=== PATIENT | male | born 1945 | race Caucasian/White ===

== ENCOUNTER 2018-05-07 19:18 | Outpatient (REF) | payer MEDICARE, SELFPAY ==
[2018-05-07 20:41] LABS: Albumin 3.6 g/dL (3.4-5.0); Anion Gap 8.8 mmol/L (3-11); BUN 25 mg/dL (7-18); CO2 28.2 mmol/L (21.0-32.0); CREATININE 1.15 mg/dL (0.70-1.30); Calcium 9.3 mg/dL (8.5-10.1); Chloride 101 mmol/L (98-107); Glucose 126 mg/dL (70-100); PHOSPHORUS 3.2 mg/dL (2.6-4.7); Potassium 4.1 mmol/L (3.5-5.1); Sodium 138 mmol/L (136-145)
== END 2018-05-07 19:19 ==
LOC: LBN 19:18
PROVIDERS: PCP Internal Medicine; Visit Provider Nurse Practitioner Adult Health
DX: I10 Essential (primary) hypertension (principal); I48.2 Chronic atrial fibrillation; N04.2 Nephrotic syndrome with diffuse membranous glomerulonephritis
CPT/HCPCS: 80069

== ENCOUNTER 2018-05-18 08:35 | Outpatient (REF) | payer MEDICARE, SELFPAY ==
[2018-05-18 19:36] LABS: COMMENT (LAB VIEW ONLY) 148.93 mg/dL; Prot/Crea Ur Ratio 0.96
== END 2018-05-18 08:36 ==
LOC: NCHCN 08:35
PROVIDERS: PCP Internal Medicine; Visit Provider Internal Medicine
DX: R80.9 Proteinuria, unspecified (principal)
CPT/HCPCS: 82565; 84156

== ENCOUNTER 2018-07-30 12:30 | Outpatient (REF) | payer MEDICARE, SELFPAY ==
[2018-07-30 19:07] LABS: Albumin 3.8 g/dL (3.4-5.0); Anion Gap 9.6 mmol/L (3-11); BUN 25 mg/dL (7-18); CO2 27.4 mmol/L (21.0-32.0); Calcium 9.4 mg/dL (8.5-10.1); Chloride 101 mmol/L (98-107); Estimated GFR 59.51 (mL/min/1.73m2); Glucose 123 mg/dL (70-100); PHOSPHORUS 3.3 mg/dL (2.6-4.7); Potassium 3.8 mmol/L (3.5-5.1); Sodium 138 mmol/L (136-145)
== END 2018-07-30 12:50 ==
LOC: LBN 12:30
PROVIDERS: PCP Internal Medicine; Visit Provider Nurse Practitioner Adult Health
DX: N04.2 Nephrotic syndrome with diffuse membranous glomerulonephritis (principal); I10 Essential (primary) hypertension
CPT/HCPCS: 80069

== ENCOUNTER 2018-07-31 09:12 | Outpatient (REF) | payer MEDICARE, SELFPAY ==
[2018-07-31 20:21] LABS: COMMENT (LAB VIEW ONLY) 72.63 mg/dL; Prot/Crea Ur Ratio 0.16
== END 2018-07-31 09:32 ==
LOC: LBN 09:12
PROVIDERS: PCP Internal Medicine; Visit Provider Nurse Practitioner Adult Health
DX: N04.2 Nephrotic syndrome with diffuse membranous glomerulonephritis (principal); I10 Essential (primary) hypertension; N18.9 Chronic kidney disease, unspecified
CPT/HCPCS: 82565; 84156

== ENCOUNTER 2019-04-22 14:06 | Outpatient (REF) | payer MEDICARE, SELFPAY ==
[2019-04-22 19:18] LABS: PROTEIN 76.7 mg/dL
[2019-04-22 19:36] LABS: Prot/Crea Ur Ratio 0.51
== END 2019-04-22 14:26 ==
LOC: NCHCN 14:06
PROVIDERS: PCP Internal Medicine; Visit Provider Internal Medicine
DX: R80.9 Proteinuria, unspecified (principal)
CPT/HCPCS: 82565; 84156

== ENCOUNTER 2019-06-28 15:19 | Outpatient (REF) | payer MEDICARE, SELFPAY ==
[2019-06-28 19:25] LABS: ALT 22 U/L (16-63); AST 16 U/L (15-37); Albumin 3.5 g/dL (3.4-5.0); Alkaline Phosphatase 161 U/L (46-116); Anion Gap 9.7 mmol/L (3-11); BUN 22 mg/dL (7-18); Bilirubin, Total 0.5 mg/dL (0.2-1.0); CO2 30.3 mmol/L (21.0-32.0); CREATININE 1.15 mg/dL (0.70-1.30); Calcium 9.4 mg/dL (8.5-10.1); Chloride 102 mmol/L (98-107); Glucose 162 mg/dL (70-100); Potassium 3.7 mmol/L (3.5-5.1); Sodium 142 mmol/L (136-145); Total Protein 6.6 g/dL (6.4-8.2)
[2019-06-28 19:47] LABS: Iron 67 ug/dL (50-175); Total Iron Binding Capacity 294 ug/dL (250-450); Transferrin Sat 23 % (20-55)
== END 2019-06-28 15:39 ==
LOC: NCHCN 15:19
PROVIDERS: PCP Internal Medicine; Visit Provider Internal Medicine
DX: G25.81 Restless legs syndrome (principal); N04.2 Nephrotic syndrome with diffuse membranous glomerulonephritis
CPT/HCPCS: 80053; 83540; 83550

== ENCOUNTER 2019-07-08 09:57 | Outpatient (REF) | payer MEDICARE, SELFPAY ==
[2019-07-08 19:35] LABS: Hemoglobin A1C 6.2 % (4.5-6.2)
== END 2019-07-08 10:17 ==
LOC: NCHCN 09:57
PROVIDERS: PCP Internal Medicine; Visit Provider Internal Medicine
DX: R73.9 Hyperglycemia, unspecified (principal)
CPT/HCPCS: 83036

== ENCOUNTER 2019-10-23 11:41 | Outpatient (REF) | payer MEDICARE, SELFPAY ==
[2019-10-23 20:53] LABS: PROTEIN 46.8 mg/dL
[2019-10-23 20:54] LABS: COMMENT (LAB VIEW ONLY) 131.54 mg/dL; Prot/Crea Ur Ratio 0.35
== END 2019-10-23 12:01 ==
LOC: NCHCN 11:41
PROVIDERS: PCP Internal Medicine; Visit Provider Internal Medicine
DX: N18.2 Chronic kidney disease, stage 2 (mild) (principal); R73.09 Other abnormal glucose; R80.9 Proteinuria, unspecified; F43.20 Adjustment disorder, unspecified
CPT/HCPCS: 82565; 84156

== ENCOUNTER 2020-04-23 14:26 | Outpatient (REF) | payer MEDICARE, SELFPAY ==
[2020-04-23 20:23] LABS: COMMENT (LAB VIEW ONLY) 105.14 mg/dL; Microalb ug/mg Crea 48.3 ug/mg Cr; PROTEIN 23.2 mg/dL (0.0-11.9)
== END 2020-04-23 14:46 ==
LOC: NCHCN 14:26
PROVIDERS: PCP Internal Medicine; Visit Provider Internal Medicine
DX: R80.9 Proteinuria, unspecified (principal)
CPT/HCPCS: 82043; 82570; 84156

== ENCOUNTER 2020-06-04 17:26 | Outpatient (REF) | payer MEDICARE, SELFPAY ==
[2020-06-04 20:21] LABS: ALT 32 U/L (16-63); AST 20 U/L (15-37); Albumin 3.9 g/dL (3.4-5.0); Alkaline Phosphatase 117 U/L (46-116); Anion Gap 6.3 mmol/L (3-11); BUN 18 mg/dL (7-18); Bilirubin, Total 0.7 mg/dL (0.2-1.0); CO2 31.7 mmol/L (21.0-32.0); CREATININE 1.18 mg/dL (0.70-1.30); Calcium 9.7 mg/dL (8.5-10.1); Chloride 102 mmol/L (98-107); Glucose 120 mg/dL (74-106); NT-proBNP 1781 pg/mL (<300); Potassium 3.4 mmol/L (3.5-5.1); Sodium 140 mmol/L (136-145); Total Protein 6.6 g/dL (6.4-8.2)
[2020-06-04 20:23] LABS: Troponin I < 0.05 ng/mL (<0.06)
== END 2020-06-04 17:46 ==
LOC: NCHCN 17:26
PROVIDERS: PCP Internal Medicine; Visit Provider Physician Assistant
DX: R60.0 Localized edema (principal); I10 Essential (primary) hypertension; I48.0 Paroxysmal atrial fibrillation; R05 Cough
CPT/HCPCS: 80053; 83880; 84484

== ENCOUNTER 2020-10-07 16:02 | Outpatient (REF) | payer MEDICARE, SELFPAY ==
[2020-10-07 20:46] LABS: PROTEIN 64.7 mg/dL
[2020-10-07 20:48] LABS: COMMENT (LAB VIEW ONLY) 163.83 mg/dL; Prot/Crea Ur Ratio 0.39
== END 2020-10-07 16:22 ==
LOC: NCHCN 16:02
PROVIDERS: PCP Internal Medicine; Visit Provider Internal Medicine
DX: N18.2 Chronic kidney disease, stage 2 (mild) (principal)
CPT/HCPCS: 82565; 84156

== ENCOUNTER 2020-11-11 18:41 | Outpatient (REF) | payer MEDICARE, SELFPAY ==
[2020-11-13 15:30] LABS: COVID-19 RT-PCR UVMMC Result Negative (Negative)
== END 2020-11-11 18:42 | disposition home or self-care (01) ==
LOC: NCHCN 18:41
PROVIDERS: PCP Internal Medicine; Visit Provider Internal Medicine
DX: J06.9 Acute upper respiratory infection, unspecified (principal)
CPT/HCPCS: U0003; U0005

== ENCOUNTER 2020-12-28 15:42 | Outpatient (REF) | payer MEDICARE, SELFPAY ==
[2020-12-28 15:57] LABS: HCT 43.8 % (40.0-50.0); HGB 14.7 g/dL (13.5-17.5); MCH 31.5 pg (27.0-33.0); MCHC 33.6 % (32.0-36.0); MCV 93.8 fL (80-95); MPV 11.9 fL (8.0-11.0); Platelet Count 147 10^3/uL (130-400); RBC 4.67 10^6/uL (4.36-5.78); RDW 13.3 % (11.8-14.1); RDW-SD 45.4 fL; WBC 6.24 10^3/uL (4.4-10.8)
[2020-12-28 16:07] LABS: Anion Gap 8.5 mmol/L (3-11); BUN 24 mg/dL (7-18); CO2 28.5 mmol/L (21.0-32.0); CREATININE 1.1 mg/dL (0.70-1.30); Calcium 9.7 mg/dL (8.5-10.1); Chloride 103 mmol/L (98-107); Glucose 123 mg/dL (74-106); Potassium 4.4 mmol/L (3.5-5.1); Sodium 140 mmol/L (136-145)
== END 2020-12-28 15:43 | disposition home or self-care (01) ==
LOC: NCHCN 15:42
PROVIDERS: PCP Internal Medicine; Visit Provider Internal Medicine
DX: I10 Essential (primary) hypertension (principal); I48.0 Paroxysmal atrial fibrillation
CPT/HCPCS: 80048; 85027

== ENCOUNTER 2021-06-08 18:58 | Outpatient (REF) | payer MEDICARE, SELFPAY ==
[2021-06-10 10:24] LABS: Lyme Ab w Rflx to Lyme Confirm Negative (Negative)
[2021-06-11 18:02] LABS: Anaplasma phagocytophilum Negative (Negative); B. miyamotoi PCR Negative (Negative); Babesia divergens/MO-1 Negative (Negative); Babesia duncani Negative (Negative); Babesia microti Negative (Negative); Ehrlichia chaffeensis Negative (Negative); Ehrlichia ewingii/canis Negative (Negative); Ehrlichia muris eauclairensis Negative (Negative)
== END 2021-06-08 18:59 | disposition home or self-care (01) ==
LOC: NCHCN 18:58
PROVIDERS: PCP Internal Medicine; Visit Provider Nurse Practitioner Family
DX: R21 Rash and other nonspecific skin eruption (principal)
CPT/HCPCS: 87798; 86618

== ENCOUNTER 2021-07-29 12:45 | Outpatient (REF) | payer MEDICARE, SELFPAY ==
[2021-07-29 19:51] LABS: ALT 40 U/L (16-63); Calculated LDL 51 mg/dL (<100); Cholesterol 105 mg/dL (<200); HDL Cholesterol 29 mg/dL (40-60); Triglyceride 126 mg/dL (<150)
[2021-07-29 20:46] LABS: COMMENT (LAB VIEW ONLY) 183.35 mg/dL
[2021-07-29 20:52] LABS: Microalb ug/mg Crea 189.4 ug/mg Cr
== END 2021-07-29 12:46 | disposition home or self-care (01) ==
LOC: NCHCN 12:45
PROVIDERS: PCP Internal Medicine; Visit Provider Internal Medicine
DX: E78.5 Hyperlipidemia, unspecified (principal); I10 Essential (primary) hypertension
CPT/HCPCS: 80061; 82043; 82570; 84460

== ENCOUNTER 2021-08-04 02:45 | Outpatient (CLI) | payer MEDICARE, SELFPAY ==
[2021-08-04 11:15] LABS: Source Nasal/Nares
[2021-08-04 17:21] LABS: COVID-19 PCR Negative (Negative)
== END 2021-08-04 02:46 | disposition home or self-care (01) ==
LOC: LBO 02:45
PROVIDERS: PCP Internal Medicine; Visit Provider Ophthalmology
DX: Z20.822 Contact with and (suspected) exposure to COVID-19 (principal); Z01.818 Encounter for other preprocedural examination
CPT/HCPCS: 87635

== ENCOUNTER 2021-08-06 07:16 | Day surgery (SDC) | payer MEDICARE, SELFPAY ==
--- NOTE | 2021-08-06 07:36 | W.ANESPRE ---
General Info Date of Service Date Performed: 08/06/21 Height: 6 ft Weight: 99.79 kg Body Mass Index (BMI): 29.8 Surgical Procedure: Operation Date: 08/06/21 09:40 Proposed Procedures Side Surgeon p Cataract Extraction with IOL Implant Right Prasad Bello MD Meds Allergies and Home Medications Allergies Allergy/AdvReac Type Severity Reaction Status Date / Time aspirin AdvReac Intermediate upset Unverified 08/06/21 07:52 stomach Home Medication Medication Instructions Recorded acetaminophen 650 mg PO Q6H PRN 08/04/21 atorvastatin 40 mg PO DAILY 08/04/21 finasteride 5 mg PO DAILY 08/04/21 losartan 25 mg PO HS 08/04/21 metoprolol tartrate 25 mg PO BID 08/04/21 multivitamin 1 tab PO DAILY 08/04/21 pantoprazole 40 mg PO DAILY 08/04/21 pramipexole 1.5 mg PO HS 08/04/21 rivaroxaban [Xarelto] 15 mg PO DAILY 08/04/21 spironolactone 25 mg PO DAILY 08/04/21 triamcinolone acetonide 1 applic TOPICAL BID 08/04/21 Current Visit Medications: Current Medications Generic Name Dose Route Start Last Admin Trade Name Freq PRN Reason Stop Dose Admin Acetaminophen 1,000 mg 08/06/21 06:00 Acetaminophen 500 Mg Tab PO Q4H PRN PRN Miscellaneous Medication 0 ml 08/06/21 06:00 Prednisolone 1%, Moxifloxacin 0.5%, Nepafenac 0.1% 5ml Btl OD DIRECTED [facility] Miscellaneous Medication 0 ml 08/06/21 06:00 Tropicam./Phenyleph. (1/2.5%) 5 Ml Btl OD DIRECTED [facility] Tetracaine HCl 0 ml 08/06/21 06:00 Tetracaine 0.5% 4 Ml Btl OD DIRECTED [facility] PFSH Active Problems Active Problems: Problem Status Onset Code Cortical cataract of right eye H26.9 Nuclear sclerotic cataract of right eye H25.11 Medical History Medical History (Updated 08/06/21 @ 07:52 by Mallika Clarke) Actinic keratosis Asbestos exposure Bilateral cataracts Bladder outlet obstruction Chronic cough CKD (chronic kidney disease), stage II COPD, mild Diabetes mellitus Eczema Esophageal dysmotilities Ex-smoker for more than 1 year GERD (gastroesophageal reflux disease) History of broken leg left History of hip fracture left HLD (hyperlipidemia) HTN (hypertension) Left hip pain Lumbago with sciatica, left side Membranous nephritis Osteoarthritis Osteoarthritis, hip, bilateral Paroxysmal A-fib Pt. stated he has not had any issues with it and f/u with his PCP Dr. Silva Pedal edema Proteinuria Pyloric channel ulcer RLS (restless legs syndrome) Rotator cuff syndrome Synovial cyst Zoster Surgical History Surgical History (Updated 08/06/21 @ 07:52 by Mallika Clarke) History of arthroplasty of left knee History of surgery on wrist left History of total right hip arthroplasty Tobacco Smoking/Tobacco Use Status: Former Tobacco Use Alcohol Alcohol Intake: never Substance Use Substance use: Never Substance use type: does not use Vital Signs and Lab Results Lab Results Blood Type / Crossmatch: No Data to Display Complete Blood Count: No Data to Display Complete Metabolic Panel: No Data to Display Liver Function Panel: Alanine Aminotransferase (ALT/SGPT) 40 U/L (16-63) 07/29/21 12:00 07/29/21 Coagulation Panel: No Data to Display Cardiac Panel: No Data to Display Arterial Blood Gas: No Data to Display Venous Blood Gas: No Data to Display Pancreas Panel: No Data to Display Thyroid Panel: No Data to Display Infectious Disease: Coronavirus (COVID-19)(PCR) Negative (Negative) 08/04/21 10:38 08/04/21 Coronavirus 2019 Source Nasal/Nares 08/04/21 10:38 08/04/21 Blood Cultures: No Data to Display Toxicology Panel: No Data to Display Anesthesia Assessment and Plan Anesthesia History Personal History: No History of Anesthesia Complications Family History: No Family History of Anesthesia Complications Exercise Tolerance Exercise Tolerance: Metabolic Equivalents>4 Pertinent Negatives Pertinent Negatives: No Symptoms of GERD, No Major Cardiovascular Symptoms or Complaints and No History of CVA/TIA Cardiac & Pulmonary Exam Cardiac Exam: Normal S1/S2 Heart Sounds Pulmonary Exam: Clear Bilateral Breath Sounds Implantable Cardiac Device Does patient have a Pacemaker or an ICD?: No Airway Exam Known Difficult Airway: No Mallampati Class: 3 Mouth Opening: Normal (> 3cm) Thyromental Distance: Greater than 3 cm Neck Range of Motion: Full ROM Neck Circumference: Normal Teeth Condition: Normal Dentition and Removable Dentures/Plates Upper ASA Classification ASA Score: ASA 3 Emergency Case?: No NPO Status NPO Status: NPO Clears >2 hours, Solids >8 hours Anesthesia Plan Resuscitation Status: Full Code Anesthesia Technique: MAC Anesthesia Airway Planned: Natural Airway Monitors Used: Standard Monitors
[2021-08-06 08:03] VITALS: BP 123/78; PULSE 69; RESP 16; TEMP 36.3; O2SAT 96
[2021-08-06] MEDS: Tropicam./Phenyleph. (1/2.5%) 5 ML BTL OD ×3 (08:10→08:20)
[2021-08-06 08:15] VITALS: BMI 29.8
[2021-08-06] MEDS: Tetracaine 0.5% 4 ML BTL OD (09:12)
[2021-08-06] MEDS: Balanced Salt Soln.-PLUS 500 ML BAG (09:13)
[2021-08-06] MEDS: Duovisc Viscoelastic System EACH 1 EACH (09:14)
[2021-08-06] MEDS: Lidocaine 1% Pres-Free 5 ML VIAL (09:15)
[2021-08-06] MEDS: Lidocaine 2% Jelly 6 ML SYR (09:15)
[2021-08-06] MEDS: Povidone-Iodine Ophth 30 ML BTL (09:17)
[2021-08-06 09:30] VITALS: BP 136/72; PULSE 70; RESP 16; TEMP 36.6; O2SAT 96
--- NOTE | 2021-08-06 09:30 | ROE_ITS ---
Date of service: 08/06/21 Time of Service: 09:30 Operative Note Operative Note DATE OF PROCEDURE: 08/06/21 PRE-OP DIAGNOSIS: Nuclear/cortical cataract, right eye POST-OP DIAGNOSIS: same PROCEDURE: Cataract extraction using phacoemulsification with intraocular lens implant, right eye SURGEON: Prasad Bello ANESTHESIA TYPE: Local By Surgeon and MAC Refer to Anesthesia Record ESTIMATED BLOOD LOSS: 0 PATHOLOGY: none sent COMPLICATIONS: None Patient was transported to: same day Patient's condition: stable Implants: Jose G & Jose G/ISACC Tecnis [id number] Indications: Progressive visual loss due to cataract, right eye Procedure Description: CATARACT SURGERY OPERATIVE REPORT PREOPERATIVE DIAGNOSIS: 1. Nuclear/cortical cataract, right eye POSTOPERATIVE DIAGNOSIS: Same OPERATION: 1. Cataract extraction using phacoemulsification with posterior chamber intraocular lens implant, right eye. IOL: IOL [employer]/Model: Jose G & Jose G / ISACC Tecnis [id number] IOL Power: + 21.0 diopters IOL Serial Number: [id number] Optic Diameter: 6.0mm Haptic/Overall Diameter: 13.0mm PHACO INFO: Win Blackberryurion Vision System with OZil and Active Fluidics Cumulative Dispersed Energy (CDE): 9.56 seconds SURGEON: Prasad Bello MD, IGOR ANESTHESIA: Monitored Anesthesia Care (MAC), with local sub-tenon's anesthetic infiltration COMPLICATIONS: None SPECIMENS: None INDICATIONS FOR PROCEDURE: The patient is a 75-year-old gentleman with history of diminished visual acuity in his right eye secondary to the development of nuclear and cortical cataract. He is significantly symptomatic that he desires cataract surgery and attempt to improve and maximize his vision. The option of cataract surgery was offered to the patient and he wished to proceed. PROCEDURE: The correct surgical eye was identified and marked as the right eye and the pupil was dilated in the preoperative area using mydriatics and cycloplegics. The dilated pupil size was 8.0 mm. He elected to proceed without oral sedation. The patient was brought to the operating room where cardiopulmonary monitoring was instituted and surgical time-out was performed, confirming the correct operative eye and IOL power. Topical anesthesia was administered and ophthalmic povidone-iodine 5% was instilled into the conjunctival fornices. Lidocaine gel was applied to the cornea and the garo-ocular area was prepped with Betadine 10% solution and draped in the usual sterile fashion for intraocular surgery, including an aperture drape. A Tegaderm transparent film dressing was cut in half and used to cover the lashes and lid margins. Care was taken to sequester the lashes and lid margins under the Tegaderm dressing. A lid speculum was placed between the lids of the operative eye and the Berna-Washington operating microscope was maneuvered into position. Ayesha scissors were then used to make a conjunctival buttonhole approximately 6mm posterior to the limbus in the inferonasal quadrant. Blunt dissection was carried out to expose bare sclera, and a blunt-tipped sub-tenon?s anesthesia cannula was introduced and passed posteriorly along the globe where non- preserved plain lidocaine was injected into posterior sub-Tenon?s space. A sideport knife was used to make a paracentesis port inferotemporally. Intraocular phenylephrine/lidocaine was injected into the anterior chamber. The anterior chamber was filled with viscoelastic. A 2.4mm keratome knife was used to create a half-thickness groove at the limbus and then to construct a three- plane near-clear corneal tunnel extending 2.0mm into clear cornea superiortemporally. A flap was raised on the anterior capsule and capsulorhexis forceps were used to complete a continuous curvilinear capsulorhexis of 5.5 mm. Balanced salt solution was then used to perform cortical cleaving hydrodissection and nuclear hydrodelineation until the lens could be freely rotated within the capsular bag. The lens nucleus was then disassembled and removed within the capsular bag and iris plane using phacoemulsification. Residual cortical material was removed using the I/A handpiece. The posterior capsule was carefully polished to remove as much residual lens epithelial cells as safely possible. The capsular bag was then inflated and the anterior chamber deepened with viscoelastic. The lens implant described above was inserted into the capsular bag using the ISACC [place] Injector. A Kuglen hook was used to d ial the IOL into position. Residual viscoelastic was then removed first from posterior to the IOL, then from the anterior chamber using the I/A handpiece. The lens implant was noted to center nicely within the capsular bag. The incisions were stromally hydrated, and the anterior chamber was reformed using BSS. Then 0.5cc of moxifloxacin 1.0mg/ml were injected into the capsular bag and anterior chamber. The incisions were checked with a Weck spear and found to be secure. Several drops of ophthalmic povidone-iodine 5% were then applied to the eye followed by two drops of Imprimis combination prednisolone/moxifloxacin/nepafenac solution. The drapes were removed and a clear plastic protective eye shield was placed over the eye. The patient was then returned to Same Day Surgery in stable condition.
--- NOTE | 2021-08-06 09:57 | W.ANESPOSTOP ---
Postoperative Evaluation Date, Time and Location Date Performed: 08/06/21 Time Performed: 09:50 Patient Location: Day Surgery Unit Vital Signs Most Recent Imported Vital Signs: Most Recent Vital Signs Temp Pulse Resp BP Pulse Ox 36.6 C 70 16 136/72 96 08/06/21 09:30 08/06/21 09:30 08/06/21 09:30 08/06/21 09:30 08/06/21 09:30 Pain Score Most Recent Pain Score: Most Recent Pain Score Pain Level 0 08/06/21 09:30 Assessment Mental Status: Awake (Alert & Oriented to Patient Baseline) Airway and Respiratory Function: Patent airway with normal (patient baseline) respiratory exam Cardiovascular Function: Hemodynamically Stable Hydration Status: Adequately Hydrated Nausea & Vomiting: No Nausea or Vomiting Pain: Pt. Denies Any Pain Peripheral Nerve Block: Other (Local by Dr. Bello)
== END 2021-08-06 09:55 | disposition home or self-care (01) ==
LOC: SUR 07:16
PROVIDERS: PCP Internal Medicine; Visit Provider Ophthalmology
PROC: (CPT 66984; principal; 2021-08-06 09:30)
DX: H25.11 Age-related nuclear cataract, right eye (principal); E11.22 Type 2 diabetes mellitus with diabetic chronic kidney disease; N18.2 Chronic kidney disease, stage 2 (mild); I48.0 Paroxysmal atrial fibrillation
CPT/HCPCS: 66984; V2632

== ENCOUNTER 2021-08-11 02:50 | Outpatient (CLI) | payer MEDICARE, SELFPAY ==
[2021-08-11 10:53] LABS: Source Nasal/Nares
[2021-08-11 14:12] LABS: COVID-19 PCR Negative (Negative)
== END 2021-08-11 02:51 | disposition home or self-care (01) ==
LOC: LBO 02:51
PROVIDERS: PCP Internal Medicine; Visit Provider Ophthalmology
DX: Z20.822 Contact with and (suspected) exposure to COVID-19 (principal); Z01.818 Encounter for other preprocedural examination
CPT/HCPCS: 87635

== ENCOUNTER 2021-08-13 07:18 | Day surgery (SDC) | payer MEDICARE, SELFPAY ==
--- NOTE | 2021-08-12 13:22 | ANES.PREOP_ITS ---
General Info Date of Service Date Performed: 08/13/21 Height: 6 ft Weight: 100.7 kg Body Mass Index (BMI): 30.1 Surgical Procedure: Operation Date: 08/13/21 09:40 Proposed Procedures Side Surgeon p Cataract Extraction with IOL Implant Left Prasad Bello MD Meds Allergies and Home Medications Allergies Allergy/AdvReac Type Severity Reaction Status Date / Time aspirin AdvReac Intermediate upset Unverified 08/13/21 07:41 stomach Home Medication Medication Instructions Recorded acetaminophen 650 mg PO Q6H PRN 08/04/21 atorvastatin 40 mg PO DAILY 08/04/21 finasteride 5 mg PO DAILY 08/04/21 losartan 25 mg PO HS 08/04/21 metoprolol tartrate 25 mg PO BID 08/04/21 multivitamin 1 tab PO DAILY 08/04/21 pantoprazole 40 mg PO DAILY 08/04/21 pramipexole 1.5 mg PO HS 08/04/21 rivaroxaban [Xarelto] 15 mg PO DAILY 08/04/21 spironolactone 25 mg PO DAILY 08/04/21 triamcinolone acetonide 1 applic TOPICAL BID 08/04/21 Current Visit Medications: Current Medications Generic Name Dose Route Start Last Admin Trade Name Freq PRN Reason Stop Dose Admin Acetaminophen 1,000 mg 08/13/21 06:00 Acetaminophen 500 Mg Tab PO Q4H PRN PRN Miscellaneous Medication 0 ml 08/13/21 06:00 Prednisolone 1%, Moxifloxacin 0.5%, Nepafenac 0.1% 5ml Btl OS DIRECTED [facility] Miscellaneous Medication 0 ml 08/13/21 06:00 Tropicam./Phenyleph. (1/2.5%) 5 Ml Btl OS DIRECTED [facility] Tetracaine HCl 0 ml 08/13/21 06:00 Tetracaine 0.5% 4 Ml Btl OS DIRECTED [facility] PFSH Active Problems Active Problems: Problem Status Onset Code Cortical cataract of left eye H26.9 Nuclear sclerotic cataract of left eye H25.12 Nuclear sclerotic cataract of right eye H25.11 Cortical cataract of right eye H26.9 Medical History Active Problem List Cortical cataract of left eye (Acute) Nuclear sclerotic cataract of left eye (Acute) Nuclear sclerotic cataract of right eye (Acute) Cortical cataract of right eye (Acute) Medical History Actinic keratosis Asbestos exposure Bilateral cataracts Bladder outlet obstruction Chronic cough CKD (chronic kidney disease), stage II COPD, mild Diabetes mellitus Eczema Esophageal dysmotilities Ex-smoker for more than 1 year GERD (gastroesophageal reflux disease) History of broken leg left History of hip fracture left HLD (hyperlipidemia) HTN (hypertension) Left hip pain Lumbago with sciatica, left side Membranous nephritis Osteoarthritis Osteoarthritis, hip, bilateral Paroxysmal A-fib Pt. stated he has not had any issues with it and f/u with his PCP Dr. Silva Pedal edema Proteinuria Pyloric channel ulcer RLS (restless legs syndrome) Rotator cuff syndrome Synovial cyst Zoster Surgical History Surgical History History of arthroplasty of left knee History of surgery on wrist left History of total right hip arthroplasty Tobacco Smoking/Tobacco Use Status: Former Tobacco Use Alcohol Alcohol Intake: never Substance Use Substance use: Never Substance use type: does not use Vital Signs and Lab Results Vital Signs Most Recent Vital Signs in EMR: Temp Pulse Resp BP Pulse Ox 36.5 C 73 18 138/86 96 08/13/21 07:26 08/13/21 07:26 08/13/21 07:26 08/13/21 07:26 08/13/21 07:26 Lab Results Blood Type / Crossmatch: No Data to Display Complete Blood Count: No Data to Display Complete Metabolic Panel: No Data to Display Liver Function Panel: Alanine Aminotransferase (ALT/SGPT) 40 U/L (16-63) 07/29/21 12:00 07/29/21 Coagulation Panel: No Data to Display Cardiac Panel: No Data to Display Arterial Blood Gas: No Data to Display Venous Blood Gas: No Data to Display Pancreas Panel: No Data to Display Thyroid Panel: No Data to Display Infectious Disease: Coronavirus (COVID-19)(PCR) Negative (Negative) 08/11/21 10:11 08/11/21 Coronavirus 2019 Source Nasal/Nares 08/11/21 10:11 08/11/21 Blood Cultures: No Data to Display Toxicology Panel: No Data to Display Anesthesia Assessment and Plan Anesthesia History Personal History: No History of Anesthesia Complications Family History: No Family History of Anesthesia Complications Exercise Tolerance Exercise Tolerance: Metabolic Equivalents>4 Cardiac & Pulmonary Exam Cardiac Exam: Normal S1/S2 Heart Sounds Pulmonary Exam: Clear Bilateral Breath Sounds Implantable Cardiac Device Does patient have a Pacemaker or an ICD?: No Airway Exam Known Difficult Airway: No Mallampati Class: 3 Mouth Opening: Normal (> 3cm) Thyromental Distance: Greater than 3 cm Neck Range of Motion: Full ROM Neck Circumference: Normal Teeth Condition: Normal Dentition and Removable Dentures/Plates Upper ASA Classification ASA Score: ASA 3 Emergency Case?: No NPO Status NPO Status: NPO Clears >2 hours, Solids >8 hours Anesthesia Plan Resuscitation Status: Full Code Anesthesia Technique: MAC Anesthesia Airway Planned: Natural Airway Monitors Used: Standard Monitors Preoperative Comments:: 75 male for cataract removal. Sig PMHx: COPD, CKD, HTN, pAfib, former smoker. no MKO for previous. no health history change.
[2021-08-13 07:26] VITALS: BP 138/86; PULSE 73; RESP 18; TEMP 36.5; O2SAT 96
[2021-08-13] MEDS: Tropicam./Phenyleph. (1/2.5%) 5 ML BTL OS ×3 (08:03→08:19)
[2021-08-13 08:35] VITALS: BMI 30.1
[2021-08-13] MEDS: Povidone-Iodine Ophth 30 ML BTL (08:40)
[2021-08-13] MEDS: Tetracaine 0.5% 4 ML BTL OS (08:40)
[2021-08-13] MEDS: Balanced Salt Soln.-PLUS 500 ML BAG (08:45)
[2021-08-13] MEDS: Lidocaine 2% Jelly 6 ML SYR (08:46)
[2021-08-13] MEDS: Duovisc Viscoelastic System EACH 1 EACH (08:46)
--- NOTE | 2021-08-13 09:10 | PDOC.DSDIS_ITS ---
Discharge Plan Disposition Patient Disposition: HOME Condition: Good Discharge Details Attending Provider: Prasad Bello Primary Care Provider: Ray Silva [place] Meds and New Rx's Prescriptions: No Action multivitamin Tablet 1 tab PO DAILY RF: 0 atorvastatin 40 mg tablet 40 mg PO DAILY RF: 0 triamcinolone acetonide 0.1 % cream 1 applic TOPICAL BID RF: 0 spironolactone 25 mg tablet 25 mg PO DAILY RF: 0 acetaminophen 650 mg tablet extended release 650 mg PO Q6H PRNRF: 0 pantoprazole 40 mg tablet,delayed release (DR/EC) 40 mg PO DAILY RF: 0 losartan 25 mg tablet 25 mg PO HS RF: 0 pramipexole 1.5 mg tablet 1.5 mg PO HS RF: 0 finasteride 5 mg tablet 5 mg PO DAILY RF: 0 metoprolol tartrate 25 mg tablet 25 mg PO BID RF: 0 Xarelto 15 mg tablet 15 mg PO DAILY RF: 0 Discharge Instructions Stand Alone Forms: Post-op Topical Cataract, [place] (DSU) Discharge Orders Discharge Orders: Discharge Order (Routine); Ordered 08/13/21 Ordered By: Prasad Bello DS: Diagnosis Discharge Diagnosis (1) Cortical cataract of left eye: Status: Resolved (2) Nuclear sclerotic cataract of left eye: Status: Resolved
--- NOTE | 2021-08-13 09:11 | ROE_ITS ---
Date of service: 08/13/21 Time of Service: 09:11 Operative Note Operative Note DATE OF PROCEDURE: 08/13/21 PRE-OP DIAGNOSIS: Nuclear/cortical cataract, left eye POST-OP DIAGNOSIS: same PROCEDURE: Cataract extraction using phacoemulsification with intraocular lens implant, left eye SURGEON: Prasad Bello ANESTHESIA TYPE: Local By Surgeon and MAC Refer to Anesthesia Record PATHOLOGY: none sent COMPLICATIONS: None Patient was transported to: same day Patient's condition: stable Implants: Jose G and Jose G / [employer] Tecnis [id number] Indications: Progressive decreased vision due to cataract, left eye Procedure Description: CATARACT SURGERY OPERATIVE REPORT PREOPERATIVE DIAGNOSIS: 1. Nuclear/cortical cataract, left eye POSTOPERATIVE DIAGNOSIS: Same OPERATION: 1. Cataract extraction using phacoemulsification with posterior chamber intraocular lens implant, left eye. IOL: IOL Clinical Specialist Medical Device/Model: Jose G & Jose G / ISACC Tecnis [id number] IOL Power: + 20.0 diopters IOL Serial Number: [id number] Optic Diameter: 6.0 mm Haptic/Overall Diameter: 13.0 mm PHACO INFO: Win Optichronon Vision System with OZil and Active Fluidics Cumulative Dispersed Energy (CDE): 8.39 seconds SURGEON: Prasad Bello MD, IGOR ANESTHESIA: Monitored A [facility] (MAC), with local sub-tenon's anesthetic infiltration COMPLICATIONS: None SPECIMENS: None INDICATIONS FOR PROCEDURE: The patient is a 75-year-old gentleman with history of diminished visual acuity in both eyes secondary to the above bilateral cataracts. He has already undergone cataract surgery in the right eye and is doing well postoperatively. He now presents for cataract surgery in the left eye. PROCEDURE: The correct surgical eye was identified and marked as the left eye and the pupil was dilated in the preoperative area using mydriatics and cycloplegics. The dilated pupil size was 8.0 mm. He elected to proceed without oral sedation.. The patient was brought to the operating room where cardiopulmonary monitoring was instituted and surgical time-out was performed, confirming the correct operative eye and IOL power. Topical anesthesia was administered and ophthalmic povidone-iodine 5% was instilled into the conjunctival fornices. Lidocaine gel was applied to the cornea and the garo-ocular area was prepped with Betadine 10% solution and draped in the usual sterile fashion for intraocular surgery, including an aperture drape. A Tegaderm transparent film dressing was cut in half and used to cover the lashes and lid margins. Care was taken to sequester the lashes and lid margins under the Tegaderm dressing. A lid speculum was placed between the lids of the operative eye and the Berna-Washington operating microscope was maneuvered into position. Ayesha scissors were then used to make a conjunctival buttonhole approximately 6mm posterior to the limbus in the inferonasal quadrant. Blunt dissection was carried out to expose bare sclera, and a blunt-tipped sub-tenon?s anesthesia cannula was introduced and passed posteriorly along the globe where non- preserved plain lidocaine was injected into posterior sub-Tenon?s space. A sideport knife was used to make a paracentesis port superiorly/superiortempora lly. Intraocular phenylephrine/lidocaine was injected int the anterior chamber.. The anterior chamber was filled with viscoelastic. A 2.4mm keratome knife was used to create a half-thickness groove at the limbus and then to construct a three-plane near-clear corneal tunnel extending 2.0mm into clear cornea at the 3:00 position. A flap was raised on the anterior capsule and capsulorhexis forceps were used to complete a continuous curvilinear capsulorhexis of 5.5 mm. Balanced salt solution was then used to perform cortical cleaving hydrodissection and nuclear hydrodelineation until the lens could be freely rotated within the capsular bag. The lens nucleus was then disassembled and removed within the capsular bag and iris plane using phacoemulsification. Residual cortical material was removed using the 45-degree angled silicone I/A tip with 0.3mm port. The posterior capsule was carefully polished to remove as much residual lens epithelial cells as safely possible. The capsular bag was then inflated and the anterior chamber deepened with viscoelastic. The lens implant described above was inserted into the capsular bag using the ISACC [place] Injector. A Kuglen hook was used to dial the IOL into position. Residual viscoelastic was then removed first from posterior to the IOL, then from the anterior chamber using the I/A handpiece. The lens implant was noted to center nicely within the capsular bag. The incisions were stromally hydrated, and the anterior chamber was reformed using BSS. Then 0.5cc of moxifloxacin 1.0mg/ml were injected into the capsular bag and anterior chamber. The incisions were checked with a Weck spear and found to be secure. Several drops of ophthalmic povidone-iodine 5% were then applied to the eye followed by two drops of Imprimis combination prednisolone/moxifloxacin/nepafenac solution. The drapes were removed and a clear plastic protective eye shield was placed over the eye. The patient was then returned to Same Day Surgery in stable condition.
[2021-08-13 09:16] VITALS: BP 138/75; PULSE 73; RESP 16; TEMP 36.1; O2SAT 97
--- NOTE | 2021-08-13 09:18 | W.ANESPOSTOP ---
Postoperative Evaluation Date, Time and Location Date Performed: 08/13/21 Time Performed: 09:18 Patient Location: Day Surgery Unit Vital Signs Most Recent Imported Vital Signs: Most Recent Vital Signs Temp Pulse Resp BP Pulse Ox 36.1 C L 73 16 138/75 97 08/13/21 09:16 08/13/21 09:16 08/13/21 09:16 08/13/21 09:16 08/13/21 09:16 Pain Score Most Recent Pain Score: Most Recent Pain Score Pain Level 0 08/13/21 09:16 Assessment Mental Status: Awake (Alert & Oriented to Patient Baseline) Airway and Respiratory Function: Patent airway with normal (patient baseline) respiratory exam Cardiovascular Function: Hemodynamically Stable Hydration Status: Adequately Hydrated Nausea & Vomiting: No Nausea or Vomiting Pain: Pt. Denies Any Pain Peripheral Nerve Block: Patient did not receive a nerve block
== END 2021-08-13 09:30 | disposition home or self-care (01) ==
PROVIDERS: PCP Internal Medicine; Visit Provider Ophthalmology
PROC: (CPT 66984; principal; 2021-08-13 09:30)
DX: H25.12 Age-related nuclear cataract, left eye (principal); I48.0 Paroxysmal atrial fibrillation; I10 Essential (primary) hypertension; J44.9 Chronic obstructive pulmonary disease, unspecified; E11.22 Type 2 diabetes mellitus with diabetic chronic kidney disease
CPT/HCPCS: 66984; V2632

== ENCOUNTER 2022-02-04 18:51 | Outpatient (REF) | payer OTHER, SELFPAY ==
[2022-02-04 19:00] LABS: COMMENT (LAB VIEW ONLY) 151.61 mg/dL; PROTEIN 77.8 mg/dL; Prot/Crea Ur Ratio 0.51
== END 2022-02-04 18:52 | disposition home or self-care (01) ==
LOC: NCHCN 18:51
PROVIDERS: PCP Internal Medicine; Visit Provider Internal Medicine
DX: E11.9 Type 2 diabetes mellitus without complications (principal); R80.9 Proteinuria, unspecified
CPT/HCPCS: 82565; 84156

== ENCOUNTER 2022-07-05 15:16 | Outpatient (REF) | payer MEDICARE, SELFPAY ==
[2022-07-05 19:39] LABS: Troponin I < 50 ng/L (<or=60)
== END 2022-07-05 15:17 | disposition home or self-care (01) ==
LOC: NCHCN 15:16
PROVIDERS: PCP Internal Medicine; Visit Provider Nurse Practitioner Family
DX: R07.9 Chest pain, unspecified (principal)
CPT/HCPCS: 84484

== ENCOUNTER 2022-08-04 16:35 | Outpatient (REF) | payer MEDICARE, SELFPAY ==
[2022-08-04 19:08] LABS: COMMENT (LAB VIEW ONLY) 161.92 mg/dL; Prot/Crea Ur Ratio 1.95
== END 2022-08-04 16:36 | disposition home or self-care (01) ==
LOC: NCHCN 16:35
PROVIDERS: PCP Internal Medicine; Visit Provider Internal Medicine
DX: R80.9 Proteinuria, unspecified (principal)
CPT/HCPCS: 82565; 84156

== ENCOUNTER 2022-08-08 15:27 | Outpatient (REF) | payer MEDICARE, SELFPAY ==
[2022-08-08 20:43] LABS: PROTEIN 150.5 mg/dL (0.0-11.9)
[2022-08-08 20:49] LABS: Total Volume 2400 ml
== END 2022-08-08 15:28 | disposition home or self-care (01) ==
LOC: NCHCN 15:27
PROVIDERS: PCP Internal Medicine; Visit Provider Internal Medicine
DX: N18.2 Chronic kidney disease, stage 2 (mild) (principal)
CPT/HCPCS: 81050; 84155

== ENCOUNTER 2022-08-10 18:21 | Outpatient (REF) | payer MEDICARE, SELFPAY ==
[2022-08-10 18:44] LABS: HCT 42.6 % (40.0-50.0); HGB 14.1 g/dL (13.5-17.5); MCH 31.8 pg (27.0-33.0); MCHC 33.1 % (32.0-36.0); MCV 96 fL (80-95); MPV 11.4 fL (8.0-11.0); Platelet Count 163 10^3/uL (130-400); RBC 4.44 10^6/uL (4.36-5.78); RDW 13.3 % (11.8-14.1); RDW-SD 47.3 fL; WBC 6.34 10^3/uL (4.4-10.8)
[2022-08-10 18:50] LABS: Albumin 3.7 g/dL (3.4-5.0); Anion Gap 6.7 mmol/L (3-11); BUN 21 mg/dL (7-18); CO2 31.3 mmol/L (21.0-32.0); CREATININE 1.1 mg/dL (0.70-1.30); Calcium 9.6 mg/dL (8.5-10.1); Chloride 105 mmol/L (98-107); Estimated GFR 69.57 (mL/min/1.73m2); Glucose 170 mg/dL (74-106); PHOSPHORUS 3.8 mg/dL (2.6-4.7); Potassium 4.3 mmol/L (3.5-5.1); Sodium 143 mmol/L (136-145)
[2022-08-12 12:35] LABS: Albumin 58.5 % (55.8-66.1); Albumin g/dL 3.5 g/dL (3.6-5.2)
== END 2022-08-10 18:22 | disposition home or self-care (01) ==
LOC: NCHCN 18:21
PROVIDERS: PCP Internal Medicine; Visit Provider Internal Medicine
DX: N02.2 Recurrent and persistent hematuria with diffuse membranous glomerulonephritis (principal)
CPT/HCPCS: 80069; 85027; 84165

== ENCOUNTER 2022-09-28 14:16 | Outpatient (REF) | payer MEDICARE, SELFPAY ==
[2022-09-28 21:31] LABS: HCT 39.1 % (40.0-50.0); MCH 31.3 pg (27.0-33.0); MCHC 33.2 % (32.0-36.0); MCV 94 fL (80-95); MPV 11.2 fL (8.0-11.0); Platelet Count 246 10^3/uL (130-400); RBC 4.16 10^6/uL (4.36-5.78); RDW 13.7 % (11.8-14.1); RDW-SD 47.2 fL; WBC 10.79 10^3/uL (4.4-10.8)
[2022-09-28 21:47] LABS: ALT 105 U/L (16-63); AST 43 U/L (15-37); Albumin 2.4 g/dL (3.4-5.0); Alkaline Phosphatase 281 U/L (46-116); Anion Gap 10.2 mmol/L (3-11); BUN 26 mg/dL (7-18); Bilirubin, Total 1.5 mg/dL (0.2-1.0); CO2 22.8 mmol/L (21.0-32.0); CREATININE 1.4 mg/dL (0.70-1.30); Calcium 8.6 mg/dL (8.5-10.1); Chloride 104 mmol/L (98-107); Estimated GFR 51.77 (mL/min/1.73m2); Glucose 298 mg/dL (74-106); Potassium 3.9 mmol/L (3.5-5.1); Sodium 137 mmol/L (136-145)
[2022-09-29 12:19] LABS: Bilirubin Small (Negative); Blood Large (Negative); Clarity Cloudy (Clear); Glucose 250 mg/dL (Negative); Ketones Negative (Negative); Leukocyte Esterase Small (Negative); Nitrite Negative (Negative); Specific Gravity >= 1.030 (1.005-1.025); Urobilinogen 0.2 EU/dL (Up TO 0.2); pH 5.5 (5-8)
[2022-09-29 12:31] LABS: Bacteria Many HPF (Negative); RBC >50 HPF (0-2); WBC >50 HPF (0-5)
[2022-09-29 12:32] LABS: C & S Indicated? C&S Done As Ordered
[2022-09-29 12:33] LABS: COMMENT (LAB VIEW ONLY) 158.84 mg/dL; PROTEIN 892.5 mg/dL; Prot/Crea Ur Ratio 5.61
== END 2022-09-28 14:17 | disposition home or self-care (01) ==
LOC: NCHCN 14:16
PROVIDERS: PCP Internal Medicine; Visit Provider Internal Medicine
DX: R41.0 Disorientation, unspecified (principal); R80.9 Proteinuria, unspecified; N18.2 Chronic kidney disease, stage 2 (mild); R82.998 Other abnormal findings in urine; E11.22 Type 2 diabetes mellitus with diabetic chronic kidney disease; I10 Essential (primary) hypertension
CPT/HCPCS: 80053; 85027; 81003; 81015; 82565; 84156; 87086

== ENCOUNTER 2022-10-04 19:07 | Outpatient (REF) | payer MEDICARE, SELFPAY | END 2022-10-04 19:08 | disposition home or self-care (01) | LOC: NCHCN 19:07 | PROVIDERS: PCP Internal Medicine; Visit Provider Internal Medicine | DX: N18.2 Chronic kidney disease, stage 2 (mild) (principal) | CPT/HCPCS: 87086 ==

== ENCOUNTER 2022-11-10 19:19 | Outpatient (REF) | payer MEDICARE, SELFPAY ==
[2022-11-10 19:37] LABS: COMMENT (LAB VIEW ONLY) 175.33 mg/dL; PROTEIN 91.5 mg/dL; Prot/Crea Ur Ratio 0.52
== END 2022-11-10 19:20 | disposition home or self-care (01) ==
LOC: NCHCN 19:19
PROVIDERS: PCP Internal Medicine; Visit Provider Internal Medicine
DX: R80.9 Proteinuria, unspecified (principal)
CPT/HCPCS: 82565; 84156

== ENCOUNTER 2023-02-02 18:03 | Outpatient (REF) | payer MEDICARE, SELFPAY ==
[2023-02-02 18:45] LABS: HCT 42.2 % (40.0-50.0); MCH 31.3 pg (27.0-33.0); MCHC 33.2 % (32.0-36.0); MCV 94 fL (80-95); MPV 11.4 fL (8.0-11.0); Platelet Count 172 10^3/uL (130-400); RBC 4.47 10^6/uL (4.36-5.78); RDW 13.8 % (11.8-14.1); RDW-SD 47.9 fL; WBC 5.57 10^3/uL (4.4-10.8)
[2023-02-02 19:00] LABS: ALT 27 U/L (16-63); AST 20 U/L (15-37); Albumin 3.9 g/dL (3.4-5.0); Alkaline Phosphatase 130 U/L (46-116); Anion Gap 7.5 mmol/L (3-11); BUN 32 mg/dL (7-18); Bilirubin, Total 0.6 mg/dL (0.2-1.0); CO2 29.5 mmol/L (21.0-32.0); CREATININE 1.1 mg/dL (0.70-1.30); Calculated LDL 76 mg/dL (<100); Chloride 106 mmol/L (98-107); Cholesterol 128 mg/dL (<200); Estimated GFR 69.14 (mL/min/1.73m2); Glucose 116 mg/dL (74-106); HDL Cholesterol 37 mg/dL (40-60); Potassium 4.7 mmol/L (3.5-5.1); Sodium 143 mmol/L (136-145); Total Protein 7.2 g/dL (6.4-8.2); Triglyceride 75 mg/dL (<150)
[2023-02-02 19:06] LABS: COMMENT (LAB VIEW ONLY) 156.61 mg/dL; PROTEIN 149.3 mg/dL; Prot/Crea Ur Ratio 0.95
== END 2023-02-02 18:04 | disposition home or self-care (01) ==
LOC: NCHCN 18:03
PROVIDERS: PCP Internal Medicine; Visit Provider Internal Medicine
DX: E78.5 Hyperlipidemia, unspecified (principal); N18.2 Chronic kidney disease, stage 2 (mild); K83.1 Obstruction of bile duct
CPT/HCPCS: 80053; 80061; 85027; 82565; 84156

== ENCOUNTER 2023-05-31 12:31 | Outpatient (REF) | payer MEDICARE, SELFPAY ==
--- NOTE | 2023-05-31 11:50 | SKI_PTH ---
PATIENT: Immanuel Carpio LOC: [facility] U#:[id number] AGE/SX: 77/M ROOM: RE05/31/[address]: Ray Silva : 1945 BED: DIS: 05/31/2023 SPEC #: [id number] RECD: 06/01/23 11:55 STATUS: ROSELINE REDilip #: [id number] SAVANNA: 05/31/23 11:[address]: Ray Silva DEPT: Surgical Specimen RECD BY: Dorothy Ozuna Tissues: 1 - SKIN BIOPSY(SHAVE/PUNCH) Procedures: SKIN LEVEL 4 Comments: [id number]
== END 2023-05-31 12:32 | disposition home or self-care (01) ==
LOC: NCHCN 12:31
PROVIDERS: PCP Internal Medicine; Visit Provider Internal Medicine
DX: C44.629 Squamous cell carcinoma of skin of left upper limb, including shoulder (principal)
CPT/HCPCS: 88305

== ENCOUNTER 2023-07-11 15:13 | Outpatient (REF) | payer MEDICARE, SELFPAY ==
[2023-07-11 18:45] LABS: HCT 39.4 % (40.0-50.0); HGB 13.1 g/dL (13.5-17.5); MCH 31.1 pg (27.0-33.0); MCHC 33.2 % (32.0-36.0); MCV 94 fL (80-95); MPV 11.1 fL (8.0-11.0); Platelet Count 157 10^3/uL (130-400); RBC 4.21 10^6/uL (4.36-5.78); RDW 13.9 % (11.8-14.1); RDW-SD 47.4 fL; WBC 6.02 10^3/uL (4.4-10.8)
[2023-07-11 19:04] LABS: NT-proBNP 205 pg/mL (<300)
== END 2023-07-11 15:14 | disposition home or self-care (01) ==
LOC: NCHCN 15:13
PROVIDERS: PCP Internal Medicine; Visit Provider Nurse Practitioner Family
DX: R06.02 Shortness of breath (principal)
CPT/HCPCS: 85027; 83880

== ENCOUNTER 2023-07-14 20:16 | Outpatient (REF) | payer MEDICARE, SELFPAY ==
[2023-07-14 18:30] LABS: Iron 76 ug/dL (65-175); Total Iron Binding Capacity 373 ug/dL (250-450); Transferrin Sat 20 % (20-55)
[2023-07-14 19:03] LABS: Ferritin 65 ng/mL (26-388); Vitamin B12 272 pg/mL (193-986)
[2023-07-14 19:16] LABS: Folate > 20.0 ng/mL (8.6-20.0)
== END 2023-07-14 20:17 | disposition home or self-care (01) ==
LOC: NCHCN 20:16
PROVIDERS: PCP Internal Medicine; Visit Provider Nurse Practitioner Family
DX: D64.9 Anemia, unspecified (principal)
CPT/HCPCS: 82607; 82728; 82746; 83540; 83550; 85045

== ENCOUNTER 2023-07-18 16:05 | Outpatient (REF) | payer MEDICARE, SELFPAY ==
[2023-07-19 10:01] LABS: Bilirubin Negative (Negative); Blood Large (Negative); Clarity Cloudy (Clear); Glucose Negative (Negative); Ketones Negative (Negative); Leukocyte Esterase Trace (Negative); Nitrite Negative (Negative); Specific Gravity 1.025 (1.005-1.025)
[2023-07-19 10:09] LABS: Bacteria Many HPF (Negative); C & S Indicated? Yes; Casts Negative LPF (Negative); Crystals Negative HPF (Negative); Mucus Moderate (Negative); RBC >50 HPF (0-2)
== END 2023-07-18 16:06 | disposition home or self-care (01) ==
LOC: NCHCN 16:05
PROVIDERS: PCP Internal Medicine; Visit Provider Nurse Practitioner Family
DX: R10.9 Unspecified abdominal pain (principal)
CPT/HCPCS: 87077; 81003; 81015; 87086; 87186

== ENCOUNTER 2023-10-09 18:43 | Outpatient (REF) | payer MEDICARE, SELFPAY ==
--- NOTE | 2023-10-09 10:40 | SKI_PTH ---
PATIENT: Immanuel Carpio LOC: [facility] U#:[id number] AGE/SX: 78/M ROOM: RE10/09/[address]: Ray Silva : 1945 BED: DIS: 10/09/2023 SPEC #: [id number] RECD: 10/09/23 18:46 STATUS: ROSELINE REDilip #: [id number] SAVANNA: 10/09/23 10:[address]: Ray Silva DEPT: Surgical Specimen RECD BY: Sonya Archibald Tissues: 1 - SKIN BIOPSY(SHAVE/PUNCH) Procedures: IMMUNOPEROXIDASE STAIN SKIN LEVEL 4 Comments: [id number]
== END 2023-10-09 18:44 | disposition home or self-care (01) ==
LOC: NCHCN 18:43
PROVIDERS: PCP Internal Medicine; Visit Provider Internal Medicine
DX: C44.399 Other specified malignant neoplasm of skin of other parts of face (principal)
CPT/HCPCS: 88305; 88361

== ENCOUNTER 2024-01-03 18:59 | Outpatient (REF) | payer MEDICARE, SELFPAY ==
[2024-01-03 19:59] LABS: HCT 40.9 % (40.0-50.0); HGB 13.3 g/dL (13.5-17.5); MCH 30.1 pg (27.0-33.0); MCHC 32.5 % (32.0-36.0); MCV 93 fL (80-95); MPV 12.6 fL (8.0-11.0); Platelet Count 110 10^3/uL (130-400); RBC 4.42 10^6/uL (4.36-5.78); RDW 14.8 % (11.8-14.1); RDW-SD 50.6 fL; WBC 6.72 10^3/uL (4.4-10.8)
[2024-01-03 20:14] LABS: ALT 40 U/L (16-63); AST 27 U/L (15-37); Albumin 3.8 g/dL (3.4-5.0); Alkaline Phosphatase 138 U/L (46-116); Anion Gap 12.2 mmol/L (3-11); BUN 31 mg/dL (7-18); Bilirubin, Total 0.7 mg/dL (0.2-1.0); CO2 24.8 mmol/L (21.0-32.0); CREATININE 1.1 mg/dL (0.70-1.30); Calcium 9.7 mg/dL (8.5-10.1); Calculated LDL 53 mg/dL (<100); Chloride 106 mmol/L (98-107); Cholesterol 116 mg/dL (<200); Estimated GFR 68.71 (mL/min/1.73m2); Glucose 119 mg/dL (74-106); HDL Cholesterol 31 mg/dL (40-60); Potassium 4.2 mmol/L (3.5-5.1); Sodium 143 mmol/L (136-145); Total Protein 7.1 g/dL (6.4-8.2); Triglyceride 163 mg/dL (<150)
== END 2024-01-03 19:00 | disposition home or self-care (01) ==
LOC: NCHCN 18:59
PROVIDERS: PCP Internal Medicine; Visit Provider Internal Medicine
DX: N04.5 Nephrotic syndrome with diffuse mesangiocapillary glomerulonephritis (principal)
CPT/HCPCS: 80053; 80061; 85027

== ENCOUNTER 2024-04-16 16:01 | Outpatient (REF) | payer MEDICARE, SELFPAY | END 2024-04-16 16:02 | disposition home or self-care (01) | LOC: NCHCN 16:01 | PROVIDERS: PCP Internal Medicine; Visit Provider Physician Assistant | DX: R30.0 Dysuria (principal) | CPT/HCPCS: 87077; 87086; 87186 ==

== ENCOUNTER 2024-05-02 18:43 | Outpatient (REF) | payer MEDICARE, SELFPAY ==
[2024-05-02 18:57] LABS: Abs Immature Grans 0.02 10^3/uL (0.0-0.06); Absolute Basophil Count 0.03 10^3/uL (0.0-0.2); Absolute Eosinophil Count 0.17 10^3/uL (0.0-0.7); Absolute Lymphocyte Count 1.51 10^3/uL (1.2-3.4); Absolute Monocyte Count 0.52 10^3/uL (0.1-0.8); Absolute Neutrophil Count 3.87 10^3/uL (1.2-6.7); Basophils % 0.5 %; Eosinophils % 2.8 %; HCT 35.4 % (40.0-50.0); Immature Grans % 0.3 %; Lymphocytes % 24.7 %; MCH 29.1 pg (27.0-33.0); MCHC 31.1 % (32.0-36.0); MCV 94 fL (80-95); MPV 11.5 fL (8.0-11.0); Monocytes % 8.5 %; Neutrophils % 63.2 %; Platelet Count 158 10^3/uL (130-400); RBC 3.78 10^6/uL (4.36-5.78); WBC 6.12 10^3/uL (4.4-10.8)
[2024-05-02 19:07] LABS: Anion Gap 8.4 mmol/L (3-11); BUN 23 mg/dL (7-18); CO2 26.6 mmol/L (21.0-32.0); CREATININE 1.2 mg/dL (0.70-1.30); Calcium 9.3 mg/dL (8.5-10.1); Chloride 105 mmol/L (98-107); Glucose 141 mg/dL (74-106); Potassium 4.3 mmol/L (3.5-5.1); Sodium 140 mmol/L (136-145)
[2024-05-02 19:29] LABS: COMMENT (LAB VIEW ONLY) 180.66 mg/dL; PROTEIN 266.1 mg/dL; Prot/Crea Ur Ratio 1.47
== END 2024-05-02 18:44 | disposition home or self-care (01) ==
LOC: NCHCN 18:43
PROVIDERS: PCP Internal Medicine; Visit Provider Internal Medicine
DX: E11.9 Type 2 diabetes mellitus without complications (principal); D69.6 Thrombocytopenia, unspecified; R80.8 Other proteinuria; R82.998 Other abnormal findings in urine
CPT/HCPCS: 80048; 87077; 82565; 84156; 85025; 87086; 87186

== ENCOUNTER 2024-05-08 20:51 | Outpatient (REF) | payer MEDICARE, SELFPAY ==
[2024-05-08 21:09] LABS: PROTEIN 165.4 mg/dL (0.0-11.9)
[2024-05-08 21:12] LABS: TOTAL PROTEIN,URINE TIMED 1819.4 mg/24hr (0.0-149.1); Total Volume 1100 ml
== END 2024-05-08 20:52 | disposition home or self-care (01) ==
LOC: NCHCN 20:51
PROVIDERS: PCP Internal Medicine; Visit Provider Internal Medicine
DX: R80.9 Proteinuria, unspecified (principal); E11.9 Type 2 diabetes mellitus without complications; D69.6 Thrombocytopenia, unspecified
CPT/HCPCS: 81050; 84155

== ENCOUNTER 2024-06-26 15:21 | Outpatient (REF) | payer MEDICARE, SELFPAY | END 2024-06-26 15:22 | disposition home or self-care (01) | LOC: NCHCN 15:21 | PROVIDERS: PCP Internal Medicine; Visit Provider Internal Medicine | DX: N39.0 Urinary tract infection, site not specified (principal); R82.89 Other abnormal findings on cytological and histological examination of urine | CPT/HCPCS: 87086 ==

== ENCOUNTER 2024-10-07 18:29 | Outpatient (REF) | payer MEDICARE, SELFPAY | END 2024-10-07 18:30 | disposition home or self-care (01) | LOC: NCHCN 18:29 | PROVIDERS: PCP Internal Medicine; Visit Provider Nurse Practitioner Family | DX: R30.0 Dysuria (principal); R82.89 Other abnormal findings on cytological and histological examination of urine | CPT/HCPCS: 87086 ==

== ENCOUNTER 2024-10-14 12:47 | Outpatient (REF) | payer MEDICARE, SELFPAY | END 2024-10-14 12:48 | disposition home or self-care (01) | LOC: NCHCN 12:47 | PROVIDERS: PCP Internal Medicine; Visit Provider Nurse Practitioner Family | DX: R30.0 Dysuria (principal); R82.89 Other abnormal findings on cytological and histological examination of urine | CPT/HCPCS: 87086 ==

== ENCOUNTER 2024-11-07 21:13 | Outpatient (REF) | payer MEDICARE, SELFPAY ==
[2024-11-07 19:25] LABS: HCT 23.4 % (40.0-50.0); MCHC 28.2 % (32.0-36.0); MCV 74 fL (80-95); MPV 10.6 fL (8.0-11.0); Platelet Count 144 10^3/uL (130-400); RBC 3.15 10^6/uL (4.36-5.78); RDW 18.7 % (11.8-14.1); RDW-SD 49.1 fL; WBC 5.33 10^3/uL (4.4-10.8)
[2024-11-07 19:45] LABS: ALT 28 U/L (16-63); AST 24 U/L (15-37); Alkaline Phosphatase 157 U/L (46-116); Anion Gap 5.7 mmol/L (3-11); BUN 23 mg/dL (7-18); CO2 26.3 mmol/L (21.0-32.0); CREATININE 1.1 mg/dL (0.70-1.30); Chloride 107 mmol/L (98-107); D-Dimer 482 ng/mlFEU (<500); Estimated GFR 68.29 (mL/min/1.73m2); Glucose 130 mg/dL (74-106); NT-proBNP 938 pg/mL (<300); Potassium 4.6 mmol/L (3.5-5.1); Sodium 139 mmol/L (136-145); Total Protein 6.5 g/dL (6.4-8.2)
[2024-11-07 20:17] LABS: HGB 6.6 g/dL (13.5-17.5)
== END 2024-11-07 21:14 | disposition home or self-care (01) ==
LOC: NCHCN 21:13
PROVIDERS: PCP Internal Medicine; Visit Provider Internal Medicine
DX: I50.9 Heart failure, unspecified (principal)
CPT/HCPCS: 80053; 85027; 83880; 85379

== ENCOUNTER 2024-11-20 02:52 | Outpatient (CLI) | payer MEDICARE, SELFPAY ==
--- NOTE | 2024-11-20 07:29 | DI.RAD_ITS ---
Exam(s) XR FOOT RT COMPLETE EXAM: XR FOOT RT COMPLETE CLINICAL HISTORY: pain of right foot,M79.671. TECHNIQUE: 2D digital imaging was performed of the right foot. Three images were obtained. AP, obl ique and lateral views were obtained. COMPARISON: No exams were available for comparison FINDINGS: BONES: No acute fracture is present. No bony destructive lesion is seen. There are hammertoe deformit ies of 2nd, 3rd and 4th toes. JOINTS: No dislocation present. Degenerative changes are seen in the foot particularly at the tarsome tatarsal joints. SOFT TISSUE: Vascular calcifications are present. There is mild soft tissue swelling seen in the for efoot. No radiopaque foreign bodies or soft tissue gas is appreciated. IMPRESSION: Chronic changes of the right foot as described above. No acute abnormality. DATA REPOSITORY: RADIATION DOSE DELIVERED:
== END 2024-11-20 03:12 ==
LOC: DI 02:53
PROVIDERS: PCP Internal Medicine; Visit Provider Podiatrist
DX: M19.071 Primary osteoarthritis, right ankle and foot (principal)
CPT/HCPCS: 11056; 11721; 93922; 73630

== ENCOUNTER → 2025-01-01 13:32 | Outpatient (BNVA) | payer MEDICARE, SELFPAY | PROVIDERS: PCP Internal Medicine; Referring Provider Internal Medicine; Visit Provider Podiatrist | DX: L84 Corns and callosities (principal); B35.1 Tinea unguium; L60.3 Nail dystrophy; I73.89 Other specified peripheral vascular diseases; N18.9 Chronic kidney disease, unspecified; G62.9 Polyneuropathy, unspecified; E11.9 Type 2 diabetes mellitus without complications; M79.672 Pain in left foot; R09.89 Other specified symptoms and signs involving the circulatory and respiratory systems; R60.0 Localized edema; I83.93 Asymptomatic varicose veins of bilateral lower extremities; L65.9 Nonscarring hair loss, unspecified; L60.8 Other nail disorders; L60.2 Onychogryphosis; L85.8 Other specified epidermal thickening | CPT/HCPCS: 11055 ==

== ENCOUNTER → 2025-03-19 13:54 | Outpatient (BNVA) | payer MEDICARE, SELFPAY | PROVIDERS: PCP Internal Medicine; Referring Provider Internal Medicine; Visit Provider Podiatrist | DX: L60.3 Nail dystrophy (principal); B35.1 Tinea unguium; L84 Corns and callosities; I73.89 Other specified peripheral vascular diseases; E11.42 Type 2 diabetes mellitus with diabetic polyneuropathy; I12.9 Hypertensive chronic kidney disease with stage 1 through stage 4 chronic kidney disease, or unspecified chronic kidney disease; N18.9 Chronic kidney disease, unspecified; R09.89 Other specified symptoms and signs involving the circulatory and respiratory systems; R60.0 Localized edema; I83.93 Asymptomatic varicose veins of bilateral lower extremities; L65.9 Nonscarring hair loss, unspecified; L85.8 Other specified epidermal thickening; L60.8 Other nail disorders; D64.9 Anemia, unspecified | CPT/HCPCS: 11055; 11721 ==

== ENCOUNTER → 2025-04-24 09:59 | Outpatient (BNVA) | payer MEDICARE, SELFPAY | PROVIDERS: PCP Internal Medicine; Referring Provider Internal Medicine; Visit Provider Surgery | DX: D50.9 Iron deficiency anemia, unspecified (principal) ==

== ENCOUNTER 2025-04-30 18:36 | Outpatient (REF) | payer SELFPAY ==
[2025-04-30 20:35] LABS: Glucose Negative (Negative)
[2025-04-30 20:46] LABS: C & S Indicated? Yes; RBC >50 HPF (0-2); WBC >50 HPF (0-5)
== END 2025-04-30 18:37 | disposition home or self-care (01) ==
LOC: NCHCN 18:36
PROVIDERS: PCP Internal Medicine; Visit Provider Internal Medicine
DX: N04.5 Nephrotic syndrome with diffuse mesangiocapillary glomerulonephritis (principal)
CPT/HCPCS: 87077; 81003; 81015; 87086; 87186

== ENCOUNTER 2025-06-06 15:20 | Outpatient (REF) | payer MEDICARE, SELFPAY | END 2025-06-06 15:21 | disposition home or self-care (01) | LOC: NCHCN 15:20 | PROVIDERS: PCP Internal Medicine; Visit Provider Physician Assistant | DX: N39.0 Urinary tract infection, site not specified (principal) | CPT/HCPCS: 87086 ==

== ENCOUNTER 2025-07-03 19:12 | Outpatient (REF) | payer MEDICARE, SELFPAY ==
[2025-07-03 20:13] LABS: Anion Gap 8.1 mmol/L (3-11); BUN 23 mg/dL (7-18); CO2 27.9 mmol/L (21.0-32.0); Calcium 9.0 mg/dL (8.5-10.1); Chloride 105 mmol/L (98-107); Estimated GFR 68.29 (mL/min/1.73m2); Glucose 127 mg/dL (74-106); Potassium 4.2 mmol/L (3.5-5.1); Sodium 141 mmol/L (136-145)
[2025-07-03 20:19] LABS: PROTEIN 356.5 mg/dL; Prot/Crea Ur Ratio 3.41
== END 2025-07-03 19:13 | disposition home or self-care (01) ==
LOC: LBN 19:12
PROVIDERS: PCP Internal Medicine; Visit Provider Internal Medicine Nephrology
DX: N04.21 Primary membranous nephropathy with nephrotic syndrome (principal)
CPT/HCPCS: 80048; 80197; 82565; 84156